=== PATIENT | male | born 1980 | race Caucasian/White ===

== ENCOUNTER 2017-06-10 15:52 | Emergency (ER) | payer OTHER ==
--- NOTE | 2017-06-10 16:46 | EDM.PDOC ---
ED HPI GENERAL MEDICAL PROBLEM - General Chief Complaint: General Stated Complaint: RIGHT SIDE NUMBNESS/NOT FEELING WELL Time Seen by Provider: 06/10/17 16:13 Source of Information: Reports: Patient, RN Notes Reviewed - History of Present Illness INITIAL COMMENTS - FREE TEXT/NARRATIVE: 36 year old male comes in with feelings of anxiety, paranoia the past 4 days, palpitations today, also feeling of warmness, possible tingling R face today, started getting numbness fingertips of both hands starting to drive home today. Decided he better get this checked out. - Related Data Allergies Allergy/AdvReac Type Severity Reaction Status Date / Time No Known Allergies Allergy Verified 06/10/17 16:03 Home Meds: Home Meds Albuterol [Ventolin HFA] 2 puff INH Q4HR PRN 06/10/17 [History] ED ROS GENERAL - Review of Systems Review Of Systems: See Below Constitutional: Denies: Fever, Chills, Diaphoresis HEENT: Denies: Rhinitis, Sinus Problem, Throat Pain Respiratory: Denies: Shortness of Breath, Pleuritic Chest Pain Cardiovascular: Reports: Palpitations. Denies: Chest Pain GI/Abdominal: Denies: Abdominal Pain, Nausea, Vomiting Musculoskeletal: Denies: Neck Pain, Shoulder Pain, Arm Pain, Back Pain Skin: Denies: Rash Neurological: Reports: Dizziness, Numbness (R face, hands, now better). Denies : Headache Psychiatric: Reports: Anxiety (has felt anxious frequently for the past 4 days) , Other (has felt "paranoid" at times for no reason at all that he is aware of) . Denies: Depression, Hallucinations ED EXAM, GENERAL - Physical Exam Exam: See Below General Appearance: Alert, Anxious (mild) Eye Exam: Bilateral Eye: PERRL Throat/Mouth: Normal Inspection Head: Atraumatic. No: Facial Swelling Neck: Supple, Full Range of Motion. No: Lymphadenopathy (L), Lymphadenopathy (R ) Respiratory/Chest: No Respiratory Distress, Lungs Clear, Normal Breath Sounds Cardiovascular: Regular Rate, Rhythm GI/Abdominal: Soft, Non-Tender Extremities: Normal Inspection, Normal Range of Motion. No: Pedal Edema, Leg Pain Neurological: Alert, Oriented, No Motor/Sensory Deficits, Other (finger to nose normal, sensation intact upper and lower extrem. ) Skin Exam: Warm, Dry, Normal Color, No Rash Course - Vital Signs Last Recorded V/S: Last Vital Signs Temp 97.4 F 06/10/17 16:04 Pulse 80 06/10/17 17:24 Resp 16 06/10/17 16:04 BP 153/102 H 06/10/17 17:24 Pulse Ox 100 06/10/17 16:04 - Orders/Labs/Meds Orders: Active Orders 24 hr Category Date Time Status EKG 12 Lead [EKG Documentation Completion] [RC] STAT Care 06/10/17 16:42 Active Labs: Laboratory Tests 06/10/17 06/10/17 Range/Units 17:10 17:10 WBC 6.60 (4.23-9.07) K/mm3 RBC 5.23 (4.63-6.08) M/mm3 Hgb 16.2 (13.7-17.5) gm/L Hct 47.4 (40.1-51.0) % MCV 90.6 (79.0-92.2) fl MCH 31.0 (25.7-32.2) pg MCHC 34.2 (32.2-35.5) g/dl RDW Std Deviation 40.9 (35.1-43.9) fL Plt Count 207 (163-337) K/mm3 MPV 11.1 (9.4-12.3) fl Neut % (Auto) 60.0 (34.0-67.9) % Lymph % (Auto) 25.8 (21.8-53.1) % Travis % (Auto) 10.8 (5.3-12.2) % Eos % (Auto) 2.4 (0.8-7.0) Baso % (Auto) 0.5 (0.1-1.2) % Neut # (Auto) 3.97 (1.78-5.38) K/mm3 Lymph # (Auto) 1.70 (1.32-3.57) K/mm3 Travis # (Auto) 0.71 (0.30-0.82) K/mm3 Eos # (Auto) 0.16 (0.04-0.54) K/mm3 Baso # (Auto) 0.03 (0.01-0.08) K/mm3 Sodium 141 (136-145) mEq/L Potassium 3.7 (3.5-5.1) mEq/L Chloride 105 (98-107) mEq/L Carbon Dioxide 24 (21-32) mEq/L Anion Gap 15.7 H (5-15) BUN 12 (7-18) mg/dL Creatinine 1.1 (0.7-1.3) mg/dL Est Cr Clr Drug Dosing 101.90 mL/min Estimated GFR (MDRD) > 60 (>60) mL/min BUN/Creatinine Ratio 10.9 L (14-18) Glucose 115 H (74-106) mg/dL Calcium 9.1 (8.5-10.1) mg/dL Total Bilirubin 0.4 (0.2-1.0) mg/dL AST 16 (15-37) U/L ALT 43 (16-63) U/L Alkaline Phosphatase 80 (46-116) U/L Total Protein 8.2 (6.4-8.2) g/dl Albumin 4.4 (3.4-5.0) g/dl Globulin 3.8 gm/dL Albumin/Globulin Ratio 1.2 (1-2) Meds: Medications Discontinued Medications Generic Name Dose Route Start Last Admin Trade Name Freq PRN Reason Stop Dose Admin Metoprolol Tartrate 50 mg 06/10/17 17:01 06/10/17 17:24 Lopressor PO 06/10/17 17:02 50 mg ONETIME ONE Administration - Re-Assessments/Exams Free Text/Narrative Re-Assessment/Exam: 06/10/17 19:37. did give metropolol 50 mg PO, with that his BP did come down to a better level. Pt much more relaxed at time of discharge. Departure - Departure Time of Disposition: 17:48 Disposition: Home, Self-Care 01 Condition: Fair Clinical Impression: Anxiety, Paresthesias Hypertension Qualifiers: Hypertension type: essential hypertension Qualified Code(s): I10 - Essential ( primary) hypertension - Discharge Information Instructions: Paresthesia, Hypertension, [id number] Referrals: PCP,Not In Area [Primary Care Provider] - Forms: ED Department Discharge Additional Instructions: Avoid salty foods, drink plenty of water to maintain hydration. Metropolol 1/ 2 of a 50 mg tablet twice daily. You can take your next dose at bedtime, than continue twice daily until you see your regular medical provider back home. Purchase a blood pressure cuff and check your BP and heart rate 2 to 3 times daily, keep a log of those readings for your regular medical provider. See your medical provider early next week, call for appt. Return to ED as needed. - My Orders Last 24 Hours: My Active Orders 06/10/17 16:42 EKG 12 Lead [EKG Documentation Completion] [RC] STAT - Assessment/Plan Last 24 Hours: My Active Orders 06/10/17 16:42 EKG 12 Lead [EKG Documentation Completion] [RC] STAT
[2017-06-10] MEDS ORDERED: Metoprolol Tartrate 50 MG Tab PO ONE (17:01)
== END 2017-06-10 19:04 | disposition home or self-care (01) ==
LOC: JD.ED 15:52
DX: I10 Essential (primary) hypertension (principal); F41.9 Anxiety disorder, unspecified; R20.2 Paresthesia of skin
CPT/HCPCS: 36415; 80053; 85025; 93005; 99284; A9270